=== PATIENT | female | born 1995 | race Caucasian/White ===

== ENCOUNTER 2017-05-04 13:37 | Inpatient (IN) | payer SELFPAY ==
[~2017-05-04] VITALS: Ht 160 cm; Wt 100.7 kg
[2017-05-04] MEDS ORDERED: SODIUM CHLORIDE 0.9% 1,000 ML IV ONE ×2 (15:42→19:01)
[2017-05-04 15:59] LABS: BASOPHILS % 0.4 % (0.0-2.0); EOSINOPHILS % 4.6 % (0.0-5.0); HEMATOCRIT. 41.1 % (36.0-48.0); HEMOGLOBIN. 13.3 g/dL (12.0-16.0); MEAN CORPUSCULAR VOLUME 74.1 fL (81.0-99.0); MEAN PLATELET VOLUME 9.5 fl (7.4-10.4); MONOCYTES % 5.7 % (2.0-8.0); NEUTROPHILS % 74.3 % (40.0-76.0); PLATELET 227 x1000/uL (130-400); RED BLOOD CELL COUNT 5.54 mill/uL (4.2-5.4); RED CELL DISTRIBUTION WIDTH 17.1 % (11.6-14.6)
[2017-05-04 16:03] LABS: CHLORIDE 106 mEq/L (98-107)
[2017-05-04 16:07] LABS: D-DIMER 0.2 mg/L FEU (<0.50); INR 1.1; PROTHROMBIN TIME 11.4 sec (9.4-11.6)
[2017-05-04 16:08] LABS: ETHANOL BLOOD < 10 mg/dL
[2017-05-04 16:34] LABS: CLARITY URINE CLEAR (CLEAR); COLOR URINE YELLOW (YELLOW); KETONES URINE NEGATIVE (NEGATIVE); LEUKOCYTE ESTERASE URINE NEGATIVE (NEGATIVE); NITRITE URINE NEGATIVE (NEGATIVE); OCCULT BLOOD URINE NEGATIVE (NEGATIVE); PH URINE 8.5 (4.5-8.0); PROTEIN URINE NEGATIVE (NEGATIVE)
[2017-05-04 16:46] LABS: *AMPHETAMINES SCREEN URINE NEGATIVE (NEGATIVE); *BARBITURATES SCREEN URINE NEGATIVE (NEGATIVE); *BENZODIAZEPINES SCREEN URINE NEGATIVE (NEGATIVE); *COCAINE SCREEN URINE NEGATIVE (NEGATIVE); CANNABINOID URINE SCREEN NEGATIVE (NEGATIVE); METHADONE URINE SCREEN NEGATIVE (NEGATIVE); OPIATES URINE SCREEN NEGATIVE (NEGATIVE); PHENCYCLIDINE URINE SCREEN NEGATIVE (NEGATIVE)
[2017-05-04] MEDS ORDERED: IOHEXOL-350 100 ML BOTTLE ONE (18:09)
[2017-05-04] MEDS ORDERED: ACETAMINOPHEN WITH CODEINE 300/30MG TABLET PO STA (19:01)
[2017-05-04] MEDS ORDERED: AZITHROMYCIN 500 MG in DEXT 5% WATER 250 ML IV ONE (19:15)
[2017-05-04] MEDS ORDERED: CEFTRIAXONE 1 G PREMIX 50 ML IV ONE (19:15)
[2017-05-04] MEDS ORDERED: ACETAMINOPHEN 325MG TABLET PO PRN (20:15)
[2017-05-04] MEDS ORDERED: MAGNESIUM/ALUMINUM HYDROXIDE/SIMETHICONE 30ML UDC PO PRN (20:15)
[2017-05-04] MEDS ORDERED: ENOXAPARIN 40MG/0.4ML SYR SUBCUT SCH (20:15)
[2017-05-04] MEDS ORDERED: GUAIFENESIN 200MG/10ML SUGAR FREE UDC PO PRN (20:15)
[2017-05-04] MEDS ORDERED: DOCUSATE SODIUM 100MG CAPSULE PO PRN (20:15)
[2017-05-04] MEDS ORDERED: DIPHENHYDRAMINE 50MG/ML VIAL IV PRN (20:15)
[2017-05-04] MEDS ORDERED: ONDANSETRON HCL 4MG/2ML VIAL IV PRN (20:15)
[2017-05-04] MEDS ORDERED: CLONIDINE 0.1MG TABLET PO PRN (20:15)
[2017-05-04] MEDS ORDERED: NA PHOS,M-B/NA PHOS,DI-BA ENEMA 118ML PR PRN (21:00)
[2017-05-04] MEDS ORDERED: MORPHINE SULFATE 4 MG/ML CPJ (NOT FOR IM USE) IV PRN (21:00)
[2017-05-04] MEDS ORDERED: AZITHROMYCIN 500 MG in SODIUM CHLORIDE 0.9% 250 ML IV ONE (21:15)
[2017-05-04 22:20] LABS: CHLORIDE 110 mEq/L (98-107)
[2017-05-04 22:25] LABS: TROPONIN I < 0.02 ng/mL (0.00-0.04)
[2017-05-04 23:39] VITALS: BP 144/75
[2017-05-05] VITALS: BP 144/75
[2017-05-05] MEDS: SODIUM CHLORIDE 0.45% 1,000 ML IV SCH ×2 (00:18→16:50)
[2017-05-05] MEDS: IPRATROPIUM/ALBUTEROL 0.5-3(2.5)MG/3ML NEB INH PRN ×5 (01:06→21:02)
[2017-05-05] MEDS: PIPERACILLIN/TAZ 3.375G PREMIX 50 ML IV SCH ×4 (02:23→22:46)
[2017-05-05 04:00] VITALS: BP 118/70
[2017-05-05 05:58] LABS: CHLORIDE 108 mEq/L (98-107)
[2017-05-05 06:09] LABS: HDL CHOLESTEROL 37 mg/dL (40-59); LDL CHOLESTEROL 100 mg/dL (5-100); T4 FREE 1.09 ng/dL (0.76-1.46); TROPONIN I < 0.02 ng/mL (0.00-0.04)
[2017-05-05 06:12] LABS: BASOPHILS % 0.4 % (0.0-2.0); EOSINOPHILS % 4.7 % (0.0-5.0); HEMATOCRIT. 37.8 % (36.0-48.0); HEMOGLOBIN. 12.2 g/dL (12.0-16.0); MEAN CORPUSCULAR HEMOGLOBIN 23.8 pg (28.0-32.0); MEAN CORPUSCULAR VOLUME 74.2 fL (81.0-99.0); MEAN PLATELET VOLUME 9.8 fl (7.4-10.4); NEUTROPHILS % 65.9 % (40.0-76.0); PLATELET 224 x1000/uL (130-400); RED CELL DISTRIBUTION WIDTH 17.2 % (11.6-14.6)
[2017-05-05 08:00] VITALS: BP 116/60
[2017-05-05] MEDS: ENOXAPARIN 30MG/0.3ML SYR SUBCUT SCH ×2 (08:48→21:18)
[2017-05-05] MEDS: ASPIRIN 81MG EC TABLET PO SCH (08:48)
[2017-05-05] MEDS: HYDROCODONE/ACETAMINOPHEN 5/325MG TABLET PO PRN ×2 (10:18→16:54)
[2017-05-05 12:00] VITALS: BP 105/56
[2017-05-05] MEDS: GUAIFENESIN 600MG ER TABLET PO SCH ×2 (12:56→21:17)
[2017-05-05 16:00] VITALS: BP 106/47
[2017-05-05 17:29] LABS: CREATINE KINASE 61 IU/L (26-192); CREATINE KINASE MB FRACTION < 0.5 ng/mL (0.5-3.6); HDL CHOLESTEROL 37 mg/dL (40-59); LDL CHOLESTEROL 102 mg/dL (5-100); T4 FREE 1.03 ng/dL (0.76-1.46); TROPONIN I < 0.02 ng/mL (0.00-0.04)
[2017-05-05 20:00] VITALS: BP 116/62
[2017-05-06] VITALS: BP 118/70
[2017-05-06] MEDS: IPRATROPIUM/ALBUTEROL 0.5-3(2.5)MG/3ML NEB INH PRN ×4 (00:45→13:52)
[2017-05-06 01:23] LABS: CREATINE KINASE 53 IU/L (26-192); CREATINE KINASE MB FRACTION < 0.5 ng/mL (0.5-3.6); TROPONIN I < 0.02 ng/mL (0.00-0.04)
[2017-05-06] MEDS: PIPERACILLIN/TAZ 3.375G PREMIX 50 ML IV SCH ×2 (05:05→13:43)
[2017-05-06 08:13] LABS: CREATINE KINASE 50 IU/L (26-192); CREATINE KINASE MB FRACTION < 0.5 ng/mL (0.5-3.6); TROPONIN I < 0.02 ng/mL (0.00-0.04)
[2017-05-06] MEDS: ENOXAPARIN 30MG/0.3ML SYR SUBCUT SCH (08:25)
[2017-05-06] MEDS: ASPIRIN 81MG EC TABLET PO SCH (08:25)
[2017-05-06] MEDS: GUAIFENESIN 600MG ER TABLET PO SCH (08:25)
[2017-05-06] MEDS: LORAZEPAM 0.5MG TABLET PO PRN ×2 (08:25→13:44)
[2017-05-06 15:30] VITALS: BP 115/68
== END 2017-05-06 15:00 | disposition home or self-care (01) | DRG 720 ==
LOC: ER 15:52 → 8WST 19:56 → ENRESERV 21:49
PROVIDERS: ADMIT Internal Medicine; ATTEND Internal Medicine
DX: A41.9 Sepsis, unspecified organism (principal); J96.01 Acute respiratory failure with hypoxia; J18.9 Pneumonia, unspecified organism; E86.0 Dehydration; I48.91 Unspecified atrial fibrillation; Z82.49 Family history of ischemic heart disease and other diseases of the circulatory system
CPT/HCPCS: 36415; 71045; 71275; 80048; 80053; 80061; 80305; 81003; 81025; 82550; 82553; 83036; 83880; 84439; 84443; 84484; 85025; 85379; 85610; 87040; 87070; 87804; 93005; 93306; 94640; 94664; 96361; 96365; 96375; 99291; G0482; J0456; J0696; J1650; J2543; J7030; J7050; J7060; J7620; Q9967

== ENCOUNTER 2024-11-27 17:43 | Emergency (ER) | payer MEDICAID ==
[2024-11-27 17:57] VITALS: PULSE 88; RESP 18; O2SAT 100
== END 2024-11-27 18:40 | disposition left against medical advice (07) ==
LOC: ER 17:43
DX: M54.9 Dorsalgia, unspecified (principal); Z53.21 Procedure and treatment not carried out due to patient leaving prior to being seen by health care provider
CPT/HCPCS: 99281